=== PATIENT | female | born 1935 | race Caucasian/White ===

== ENCOUNTER → 2016-06-19 | Outpatient (CLI) | payer OTHER ==
[~2016-06-19] MED LIST: ASPIR 8181 M1 PO; ASPIR 8181 MG PO; BENAZEPRIL 10 M10 MG PO; BENAZEPRIL HCL40 MG PO; DUONEB 2.5-0.5 M3 ML INH; FLOMAX0.4 MG PO; GABAPENTIN 100100 MG; IRON325 PO; LASIX 20 MG TAB20 MG; LASIX 20 MG TAB20 MG PO; LEVOTHYROXINE0.05 MG PO; LIPITOR 20 MG T20 M1 PO; MUCINEX TA600 MG/TA1 PO; NEURONTIN600 MG PO; NORTRIPTYLINE H10 M1 PO; NORTRIPTYLINE H10 M2; OMEPRAZOLE20 M2 PO; OSPHENA60 MG PO; PROTONIX40 M4 PO; REQUIP 0.25 M0.25 M1; REQUIP3 MG PO
== END ==
LOC: HYPER 08:00
DX: I87.2 Venous insufficiency (chronic) (peripheral) (principal); L97.512 Non-pressure chronic ulcer of other part of right foot with fat layer exposed; I12.9 Hypertensive chronic kidney disease with stage 1 through stage 4 chronic kidney disease, or unspecified chronic kidney disease; N18.9 Chronic kidney disease, unspecified; E03.9 Hypothyroidism, unspecified; K21.9 Gastro-esophageal reflux disease without esophagitis; Z87.891 Personal history of nicotine dependence

== ENCOUNTER 2016-08-23 10:25 | Inpatient (IN) | payer OTHER ==
[~2016-08-23] VITALS: Ht 152.4 cm; Wt 80.1 kg
--- NOTE | ~2016-08-23 | EKG ---
[address] [address] ELECTROCARDIOGRAM REPORT Name: CHELSY TALLEY Room #: 419-P [facility] IN ..#: [id number] Admission: 08/23/16 Attend Phys: Ham Moreland MD Discharge: Date of : 37 Report #: [id number] THIS REPORT FOR: //name// [facility] ED Test Date: 2016-08-23 Test Time: 10:38:26 Pat Name: CHELSY TALLEY Department: Room: 419 Gender: F Carbonator: LUDIVINA : 1935 Requested By: Roman Mancuso Order Number: [id number] MD: Crow Vega Measurements Intervals [place] Rate: 72 P: 41 [place]: 164 QRS: -44 QRSD: 106 T: 20 QT: 379 QTc: 415 Interpretive Statements Sinus rhythm Left ventricular hypertrophy No previous ECG available for comparison Electronically Signed On 08-24-2016 9:07:14 CDT by Crow Vega [email or web address] <ELECTRONICALLY SIGNED> By: Crow Vega MD, [facility] 08/24/16 0907 1038 1038 Crow Vega MD, FACC /EPI
[~2016-08-23 10:25] MED LIST changes: -ASPIR 8181 M1 PO; -BENAZEPRIL 10 M10 MG PO; -DUONEB 2.5-0.5 M3 ML INH; -FLOMAX0.4 MG PO; -IRON325 PO; -LASIX 20 MG TAB20 MG PO; -LEVOTHYROXINE0.05 MG PO; -LIPITOR 20 MG T20 M1 PO; -MUCINEX TA600 MG/TA1 PO; -NEURONTIN600 MG PO; -NORTRIPTYLINE H10 M1 PO; -OMEPRAZOLE20 M2 PO; -OSPHENA60 MG PO; -PROTONIX40 M4 PO; -REQUIP3 MG PO
[2016-08-23 10:26] VITALS: BP 148/87
[2016-08-23] MEDS ORDERED: OSPHENA60 MG PO (10:47)
[2016-08-23] MEDS ORDERED: BENAZEPRIL 10 M10 MG PO (10:47)
[2016-08-23] MEDS ORDERED: LEVOTHYROXINE0.05 MG PO (10:47)
[2016-08-23] MEDS ORDERED: LASIX 20 MG TAB20 MG PO (10:47)
[2016-08-23] MEDS ORDERED: FLOMAX0.4 MG PO (10:48)
[2016-08-23] MEDS ORDERED: PROTONIX40 M4 PO (10:48)
[2016-08-23 10:49] LABS: ABSOLUTE NEUTROPHILS 3.2 thou/uL (1.4-8.2); BASOPHILS 0.7 % (0.0-2.0); EOSINOPHILS 2.9 % (0.0-3.0); HEMATOCRIT 33.8 % (37.0-47.0); HEMOGLOBIN 11.2 gm/dL (12.0-15.0); LYMPHOCYTES 24.4 % (24.0-44.0); MANUAL DIFF NO; MCH 26.6 pg (26.0-34.0); MCV 80.5 fL (80.0-100.0); MONOCYTES 7.8 % (1.0-8.0); PLATELET COUNT 160 thou/uL (150-400); POLYS 64.2 % (36.0-66.0); RDW 15.3 % (10.5-14.5)
[2016-08-23 10:56] LABS: CALCIUM 8.7 mg/dL (8.5-10.1); CREATININE 1.4 mg/dL (0.6-1.3); POTASSIUM 4.2 mmol/L (3.5-5.1)
[2016-08-23 11:03] LABS: TOTAL BILIRUBIN 0.3 mg/dL (<0.1-1.0); TOTAL PROTEIN 6.9 g/dL (6.4-8.2)
[2016-08-23 11:20] LABS: URINE BILIRUBIN NEGATIVE (Negative); URINE BLOOD 3+ (Negative); URINE COLOR YELLOW; URINE GLUCOSE-RANDOM* NEGATIVE (Negative); URINE KETONES NEGATIVE (Negative); URINE LEUKOCYTES-REFLEX NEGATIVE (Negative); URINE PROTEIN (DIPSTICK) NEGATIVE (Negative); URINE SPECIFIC GRAVITY <= 1.005 (1.003-1.035); URINE UROBILINOGEN 0.2 E.U./dl (0.2-1.0)
[2016-08-23 11:26] LABS: CASTS None Seen /LPF (None Seen); CRYSTALS None Seen /LPF (None Seen); SQUAMOUS 4-10 Moderate /LPF (0-3); URINE RBC 3-10 Few /HPF (0-2)
[2016-08-23 11:27] LABS: URINE WBC-REFLEX 0-5 Rare /HPF (0-5)
[2016-08-23 12:20] VITALS: BP 138/81
[2016-08-23] MEDS ORDERED: REQUIP3 MG PO (12:36)
[2016-08-23] MEDS ORDERED: NEURONTIN600 MG PO (12:36)
[2016-08-23] MEDS ORDERED: NORTRIPTYLINE H10 M1 PO (12:37)
[2016-08-23] MEDS ORDERED: IRON325 PO (12:38)
[2016-08-23] MEDS ORDERED: ASPIR 8181 M1 PO (12:53)
[2016-08-23 15:15] VITALS: BP 108/64
[2016-08-23 20:00] VITALS: BP 99/57
[2016-08-24 04:00] VITALS: BP 116/56
[2016-08-24 06:12] LABS: HEMOGLOBIN 10.5 gm/dL (12.0-15.0); MCH 26.8 pg (26.0-34.0); MCHC 32.8 g/dL (28.0-37.0); MCV 81.8 fL (80.0-100.0); RBC 3.91 mil/uL (4.20-5.00); RDW 15.6 % (10.5-14.5); WBC 5.3 thou/uL (4.0-11.0)
[2016-08-24 06:40] LABS: CALCIUM 8.1 mg/dL (8.5-10.1); CREATININE 1.3 mg/dL (0.6-1.3)
[2016-08-24 07:19] VITALS: BP 104/59
[2016-08-24 08:03] VITALS: BP 106/64
[2016-08-24] MEDS ORDERED: OMEPRAZOLE20 M2 PO (10:59)
[2016-08-24] MEDS ORDERED: LIPITOR 20 MG T20 M1 PO (10:59)
[2016-08-24 13:01] VITALS: BP 110/53
[2016-08-24 15:39] VITALS: BP 113/59
[2016-08-24 20:00] VITALS: BP 120/55
[2016-08-25 04:48] VITALS: BP 141/66
[2016-08-25 07:33] VITALS: BP 128/57
[2016-08-25 16:03] VITALS: BP 123/60
[2016-08-25 20:00] VITALS: BP 132/69
[2016-08-26 04:50] VITALS: BP 159/98
[2016-08-26 07:53] VITALS: BP 145/83
[2016-08-26 12:49] LABS: HEMATOCRIT 30.7 % (37.0-47.0); HEMOGLOBIN 10.4 gm/dL (12.0-15.0); MCH 26.8 pg (26.0-34.0); MCHC 33.8 g/dL (28.0-37.0); MCV 79.2 fL (80.0-100.0); RBC 3.88 mil/uL (4.20-5.00); RDW 15.2 % (10.5-14.5); WBC 3.9 thou/uL (4.0-11.0)
[2016-08-26 13:00] LABS: CALCIUM 8.1 mg/dL (8.5-10.1)
[2016-08-26 15:12] VITALS: BP 151/77
[2016-08-26 20:00] VITALS: BP 133/78
[2016-08-27 04:00] VITALS: BP 137/89
[2016-08-27 07:47] VITALS: BP 147/87
[2016-08-27 09:07] LABS: HEMATOCRIT 34.5 % (37.0-47.0); HEMOGLOBIN 11.7 gm/dL (12.0-15.0); MCH 26.8 pg (26.0-34.0); MCHC 34.1 g/dL (28.0-37.0); MCV 78.7 fL (80.0-100.0); RBC 4.38 mil/uL (4.20-5.00); RDW 15.1 % (10.5-14.5); WBC 4.4 thou/uL (4.0-11.0)
[2016-08-27 09:15] LABS: CALCIUM 8.6 mg/dL (8.5-10.1); CREATININE 1.2 mg/dL (0.6-1.3); POTASSIUM 3.9 mmol/L (3.5-5.1)
[2016-08-27 16:21] VITALS: BP 139/91
[2016-08-27 20:00] VITALS: BP 138/93
[2016-08-28 03:09] LABS: HEMATOCRIT 32.5 % (37.0-47.0); HEMOGLOBIN 11.1 gm/dL (12.0-15.0); MCH 26.8 pg (26.0-34.0); MCHC 34.1 g/dL (28.0-37.0); MCV 78.7 fL (80.0-100.0); RBC 4.13 mil/uL (4.20-5.00); RDW 15.3 % (10.5-14.5); WBC 4.3 thou/uL (4.0-11.0)
[2016-08-28 03:22] LABS: CREATININE 1.3 mg/dL (0.6-1.3); POTASSIUM 3.8 mmol/L (3.5-5.1)
[2016-08-28 03:58] LABS: CALCIUM 8.3 mg/dL (8.5-10.1)
[2016-08-28 04:30] VITALS: BP 132/76
[2016-08-28 07:40] VITALS: BP 137/69
[2016-08-28] MEDS ORDERED: DUONEB 2.5-0.5 M3 ML INH (14:51)
[2016-08-28] MEDS ORDERED: MUCINEX TA600 MG/TA1 PO (14:54)
[2016-08-28 15:40] VITALS: BP 133/84
[2016-08-31 22:06] LABS: INFLUENZA B Negative (Negative); METAPNEUMOVIRUS Negative (Negative)
== END 2016-08-28 17:49 | DRG 603 ==
LOC: ER 10:25 → 4E 11:45 → EROBS 11:45 → 4E 12:20
PROVIDERS: Emergency Medicine; Hospitalist; Internal Medicine
DX: L03.115 Cellulitis of right lower limb (principal); N17.9 Acute kidney failure, unspecified; N39.0 Urinary tract infection, site not specified; J20.8 Acute bronchitis due to other specified organisms; I10 Essential (primary) hypertension; E03.9 Hypothyroidism, unspecified; B34.9 Viral infection, unspecified; G62.9 Polyneuropathy, unspecified; M19.90 Unspecified osteoarthritis, unspecified site; Z96.651 Presence of right artificial knee joint; Z87.891 Personal history of nicotine dependence; Z88.6 Allergy status to analgesic agent
CPT/HCPCS: 10084

== ENCOUNTER 2016-10-31 10:22 | Emergency (ER) | payer OTHER ==
[~2016-10-31] VITALS: Ht 152.4 cm; Wt 81.7 kg
[~2016-10-31 10:22] MED LIST changes: +ASPIR 8181 M1 PO; +BENAZEPRIL 10 M10 MG PO; +DUONEB 2.5-0.5 M3 ML INH; +FLOMAX0.4 MG PO; +IRON325 PO; +LASIX 20 MG TAB20 MG PO; +LEVOTHYROXINE0.05 MG PO; +LIPITOR 20 MG T20 M1 PO; +MUCINEX TA600 MG/TA1 PO; +NEURONTIN600 MG PO; +NORTRIPTYLINE H10 M1 PO; +OMEPRAZOLE20 M2 PO; +OSPHENA60 MG PO; +PROTONIX40 M4 PO; +REQUIP3 MG PO
[2016-10-31 11:23] LABS: ABSOLUTE NEUTROPHILS 3.9 thou/uL (1.4-8.2); BASOPHILS 0.8 % (0.0-2.0); EOSINOPHILS 2.8 % (0.0-3.0); HEMATOCRIT 33.4 % (37.0-47.0); HEMOGLOBIN 11.2 gm/dL (12.0-15.0); MANUAL DIFF NO; MCHC 33.4 g/dL (28.0-37.0); MCV 80.6 fL (80.0-100.0); MONOCYTES 5.5 % (1.0-8.0); PLATELET COUNT 174 thou/uL (150-400); POLYS 66.9 % (36.0-66.0); RBC 4.14 mil/uL (4.20-5.00); RDW 15.1 % (10.5-14.5); WBC 5.8 thou/uL (4.0-11.0)
[2016-10-31 11:45] LABS: CALCIUM 8.6 mg/dL (8.5-10.1); CREATININE 1.4 mg/dL (0.6-1.0)
[2016-10-31] MEDS ORDERED: KEFLEX500 MG PO (11:48)
== END 2016-10-31 11:56 | disposition home or self-care (01) ==
LOC: ER 10:22
PROVIDERS: Emergency Medicine
DX: L03.115 Cellulitis of right lower limb (principal); M19.90 Unspecified osteoarthritis, unspecified site; G62.9 Polyneuropathy, unspecified; I10 Essential (primary) hypertension; G56.00 Carpal tunnel syndrome, unspecified upper limb; Z88.5 Allergy status to narcotic agent; Z87.891 Personal history of nicotine dependence

== ENCOUNTER 2017-02-05 12:48 | Emergency (ER) | payer OTHER ==
[~2017-02-05] VITALS: Ht 152.4 cm; Wt 83.5 kg
[~2017-02-05 12:48] MED LIST changes: +KEFLEX500 MG PO
[2017-02-05 15:08] LABS: ABSOLUTE NEUTROPHILS 3.5 thou/uL (1.4-8.2); BASOPHILS 1.1 % (0.0-2.0); EOSINOPHILS 2.5 % (0.0-3.0); HEMOGLOBIN 12.2 gm/dL (12.0-15.0); LYMPHOCYTES 21.7 % (24.0-44.0); MCH 26.8 pg (26.0-34.0); MCV 81.2 fL (80.0-100.0); MONOCYTES 7.6 % (1.0-8.0); PLATELET COUNT 168 thou/uL (150-400); POLYS 67.1 % (36.0-66.0); RBC 4.55 mil/uL (4.20-5.00); RDW 14.9 % (10.5-14.5); WBC 5.2 thou/uL (4.0-11.0)
[2017-02-05 15:10] LABS: MANUAL DIFF NO
[2017-02-05 15:14] LABS: CALCIUM 8.9 mg/dL (8.5-10.1); CREATININE 1.2 mg/dL (0.6-1.0); POTASSIUM 4.3 mmol/L (3.5-5.1)
[2017-02-05 15:21] LABS: ALBUMIN 3.6 g/dL (3.4-5.0); TOTAL BILIRUBIN 0.4 mg/dL (<0.1-1.0); TOTAL PROTEIN 7.4 g/dL (6.4-8.2)
[2017-02-05] MEDS ORDERED: KEFLEX500 MG PO (15:45)
== END 2017-02-05 16:30 | disposition home or self-care (01) ==
LOC: ER 12:48
PROVIDERS: Physician Assistant
DX: L03.115 Cellulitis of right lower limb (principal); I10 Essential (primary) hypertension; Z96.651 Presence of right artificial knee joint; M19.90 Unspecified osteoarthritis, unspecified site; F10.99 Alcohol use, unspecified with unspecified alcohol-induced disorder; Z87.891 Personal history of nicotine dependence; Z88.5 Allergy status to narcotic agent

== ENCOUNTER 2017-02-25 09:06 | Inpatient (IN) | payer OTHER ==
[~2017-02-25] VITALS: Ht 152.4 cm; Wt 87.5 kg
--- NOTE | ~2017-02-25 | HC ---
[facility] [place] [address] CONSULTATION Name: CHELSY TALLEY Room #: 308-P ADM IN M.R.#: [id number] Admission: 02/25/17 Attend Phys: Vin Sanchez DO Discharge: Date of : 37 Report #: [id number] THIS REPORT FOR: //name// CC: Vin Torrez DATE OF SERVICE: 02/25/2017 INFECTIOUS DISEASE CONSULTATION REASON FOR CONSULTATION: I was asked to evaluate concerning right lower extremity cellulitis and urinary tract infection. HISTORY OF PRESENT ILLNESS: The patient is a 81-year-old who lives in an assisted living with her . Has issues with chronic lymphedema in both lower extremities. She has recurrent urinary tract infections. She noted that last evening, her cat jumped on her bed and scratch her leg. From there, she had increased pain and swelling, mostly in the right leg greater than the left. She has previously been on cephalexin. Presents now for further evaluation. She has been without fever or chills. Denies any cough or sputum production. No nausea, vomiting or diarrhea. She has not had any dysuria, but does have incontinence and frequency. ALLERGIES: None known. MEDICATIONS: As noted on AUG, was started on vancomycin on admission. PAST MEDICAL HISTORY: Peripheral neuropathy, peripheral edema, hypertension, arthritis, surgery to her neck, cervical spine, right knee total arthroplasty, , carpal tunnel release, spinal fusion, lumbar spine, hypothyroidism. FAMILY HISTORY: Noncontributory. SOCIAL HISTORY: Past smoker, no significant alcohol intake. PHYSICAL EXAMINATION: VITAL SIGNS: Afebrile and hemodynamically stable. GENERAL: She was alert and cooperative. O2 saturations adequate on room air. HEENT: Unremarkable. NECK: Supple. LUNGS: Clear. HEART: Regular, without gallop or murmur. ABDOMEN: Soft, nontender. No hepatosplenomegaly or mass. EXTREMITIES: Pulses in the lower extremity, unremarkable with 2+ pulses in the right dorsalis pedis, 3+ left dorsalis pedis, 3+ posterior tibial; venous stasis dermatitis, right greater than left with associated cellulitis involving the [address] [address] CONSULTATION Name: MAYANKCHELSYMILLICENT CHRISTIE Room #: 308-P [facility] IN [facility].#: [id number] Admission: 02/25/17 Attend Phys: Vin Sacnhez DO Discharge: Date of : 37 Report #: [id number] right lower extremity up to the calf. There was skin breakdown and serous fluid draining. Sensation was diminished in her toes. LABORATORY STUDIES: Ultrasound of lower extremity is negative for DVT. Chest x-ray clear. Sodium 137, potassium 4.4, bicarbonate 26, creatinine 1.6. Liver function test normal. Hemoglobin 11.4, platelet count 154,000, white count 8.7. Urinalysis positive for WBCs, bacteria, and yeast. IMPRESSION: A 81-year-old with venous stasis disease, bilateral stasis dermatitis with cellulitis involving the right lower extremity. This was after a cat scratch. This will increase possibility of gram-negative infection. She also has a urinary tract infection consistent with cystitis. She had no CVA tenderness or other toxicity to suspect upper tract. PLAN: Recommend continuing IV antibiotic therapy with Unasyn. The patient will be screened for MRSA. Leg elevation to decreased edema. Diuresis as necessary. Await urine culture results. We will adjust antibiotics accordingly. <ELECTRONICALLY SIGNED> By: Emile Agustin MD 02/27/17 1424 05 0359 Emile Agustin MD /nt
[2017-02-25 09:06] VITALS: BP 130/72
[2017-02-25] MEDS ORDERED: COCONUT OIL1000 MG PO (09:30)
[2017-02-25] MEDS ORDERED: NEURONTIN600 MG PO (09:30)
[2017-02-25] MEDS ORDERED: UNICOMPLEX M TA1 TA1 PO (09:30)
[2017-02-25] MEDS ORDERED: ANTIVERT25 MG PO (09:32)
[2017-02-25 09:39] LABS: ABSOLUTE NEUTROPHILS 7.2 thou/uL (1.4-8.2); BASOPHILS 0.3 % (0.0-2.0); EOSINOPHILS 0.4 % (0.0-3.0); HEMATOCRIT 34.8 % (37.0-47.0); HEMOGLOBIN 11.4 gm/dL (12.0-15.0); LYMPHOCYTES 11.5 % (24.0-44.0); MCH 26.6 pg (26.0-34.0); MCHC 32.6 g/dL (28.0-37.0); MCV 81.6 fL (80.0-100.0); MONOCYTES 5.2 % (1.0-8.0); PLATELET COUNT 154 thou/uL (150-400); POLYS 82.6 % (36.0-66.0); RBC 4.27 mil/uL (4.20-5.00); RDW 14.7 % (10.5-14.5); WBC 8.7 thou/uL (4.0-11.0)
[2017-02-25 09:42] LABS: CALCIUM 8.5 mg/dL (8.5-10.1); CREATININE 1.6 mg/dL (0.6-1.0); POTASSIUM 4.4 mmol/L (3.5-5.1)
[2017-02-25 09:43] LABS: MANUAL DIFF NO
[2017-02-25 09:49] LABS: ALBUMIN 3.4 g/dL (3.4-5.0); DIRECT BILIRUBIN 0.1 mg/dL (<0.1-0.3); TOTAL BILIRUBIN 0.5 mg/dL (<0.1-1.0); TOTAL PROTEIN 6.4 g/dL (6.4-8.2)
[2017-02-25 10:10] LABS: URINE BILIRUBIN NEGATIVE (Negative); URINE BLOOD NEGATIVE (Negative); URINE COLOR YELLOW; URINE GLUCOSE-RANDOM* NEGATIVE (Negative); URINE KETONES NEGATIVE (Negative); URINE NITRITE NEGATIVE (Negative); URINE PROTEIN (DIPSTICK) NEGATIVE (Negative); URINE UROBILINOGEN 0.2 E.U./dl (0.2-1.0)
[2017-02-25 10:23] LABS: SQUAMOUS >10 Many /LPF (0-3)
[2017-02-25 10:24] LABS: CASTS None Seen /LPF (None Seen); CRYSTALS None Seen /LPF (None Seen); URINE RBC 0-2 Rare /HPF (0-2); URINE WBC >25 Many /HPF (0-5); YEAST Present (None Seen)
[2017-02-25 11:35] VITALS: BP 125/75
[2017-02-25 12:30] VITALS: BP 137/71
[2017-02-25 15:15] VITALS: BP 103/61
[2017-02-25 19:10] VITALS: BP 118/74
[2017-02-25 23:11] VITALS: BP 124/55
[2017-02-26 03:08] VITALS: BP 145/68
[2017-02-26 03:42] LABS: CALCIUM 8.1 mg/dL (8.5-10.1); CREATININE 1.4 mg/dL (0.6-1.0); POTASSIUM 4.4 mmol/L (3.5-5.1)
[2017-02-26 03:59] LABS: BASOPHILS 0.9 % (0.0-2.0); EOSINOPHILS 4.5 % (0.0-3.0); HEMATOCRIT 30.6 % (37.0-47.0); HEMOGLOBIN 10.1 gm/dL (12.0-15.0); LYMPHOCYTES 32.8 % (24.0-44.0); MCHC 33.1 g/dL (28.0-37.0); MCV 81.6 fL (80.0-100.0); MONOCYTES 7.7 % (1.0-8.0); PLATELET COUNT 148 thou/uL (150-400); POLYS 54.1 % (36.0-66.0); RBC 3.75 mil/uL (4.20-5.00); RDW 15.3 % (10.5-14.5); WBC 5.5 thou/uL (4.0-11.0)
[2017-02-26 04:30] LABS: MANUAL DIFF NO
[2017-02-26 08:24] VITALS: BP 122/59
[2017-02-26 16:24] VITALS: BP 145/60
[2017-02-26 19:38] VITALS: BP 118/68
[2017-02-27 03:58] VITALS: BP 145/75
[2017-02-27 07:15] VITALS: BP 142/82
[2017-02-27 07:19] LABS: ABSOLUTE NEUTROPHILS 2.5 thou/uL (1.4-8.2); BASOPHILS 0.8 % (0.0-2.0); EOSINOPHILS 5.8 % (0.0-3.0); HEMATOCRIT 32.4 % (37.0-47.0); HEMOGLOBIN 11.1 gm/dL (12.0-15.0); LYMPHOCYTES 33.1 % (24.0-44.0); MCH 27.6 pg (26.0-34.0); MCHC 34.2 g/dL (28.0-37.0); MCV 80.4 fL (80.0-100.0); MONOCYTES 7.7 % (1.0-8.0); PLATELET COUNT 157 thou/uL (150-400); POLYS 52.6 % (36.0-66.0); RBC 4.03 mil/uL (4.20-5.00); RDW 15.2 % (10.5-14.5); WBC 4.8 thou/uL (4.0-11.0)
[2017-02-27 07:20] LABS: MANUAL DIFF NO
[2017-02-27 07:26] LABS: CALCIUM 8.5 mg/dL (8.5-10.1); CREATININE 1.4 mg/dL (0.6-1.0); POTASSIUM 4.2 mmol/L (3.5-5.1)
[2017-02-27 18:11] VITALS: BP 130/61
[2017-02-28 03:59] VITALS: BP 148/78
[2017-02-28 05:59] LABS: ABSOLUTE NEUTROPHILS 3.6 thou/uL (1.4-8.2); BASOPHILS 0.8 % (0.0-2.0); EOSINOPHILS 4.9 % (0.0-3.0); HEMATOCRIT 36.4 % (37.0-47.0); LYMPHOCYTES 32.3 % (24.0-44.0); MCH 26.4 pg (26.0-34.0); MCV 80.1 fL (80.0-100.0); MONOCYTES 7.3 % (1.0-8.0); PLATELET COUNT 182 thou/uL (150-400); POLYS 54.7 % (36.0-66.0); RBC 4.55 mil/uL (4.20-5.00); RDW 14.7 % (10.5-14.5); WBC 6.5 thou/uL (4.0-11.0)
[2017-02-28 06:09] LABS: CREATININE 1.2 mg/dL (0.6-1.0); POTASSIUM 4.3 mmol/L (3.5-5.1)
[2017-02-28 06:11] LABS: MANUAL DIFF NO
[2017-02-28 08:00] VITALS: BP 146/80
[2017-02-28 16:20] VITALS: BP 153/86
[2017-02-28 19:51] VITALS: BP 129/78
[2017-03-01 03:50] VITALS: BP 139/82
[2017-03-01 05:26] LABS: ABSOLUTE NEUTROPHILS 2.7 thou/uL (1.4-8.2); BASOPHILS 0.8 % (0.0-2.0); EOSINOPHILS 5.6 % (0.0-3.0); HEMATOCRIT 34.6 % (37.0-47.0); HEMOGLOBIN 11.7 gm/dL (12.0-15.0); LYMPHOCYTES 36.5 % (24.0-44.0); MCHC 33.9 g/dL (28.0-37.0); MCV 79.6 fL (80.0-100.0); MONOCYTES 6.3 % (1.0-8.0); PLATELET COUNT 186 thou/uL (150-400); POLYS 50.8 % (36.0-66.0); RBC 4.35 mil/uL (4.20-5.00); WBC 5.4 thou/uL (4.0-11.0)
[2017-03-01 05:33] LABS: MANUAL DIFF NO
[2017-03-01 05:47] LABS: CALCIUM 8.8 mg/dL (8.5-10.1); CREATININE 1.2 mg/dL (0.6-1.0); POTASSIUM 3.8 mmol/L (3.5-5.1)
[2017-03-01 07:50] VITALS: BP 109/71
[2017-03-01] MEDS ORDERED: Hydrocerin Cream 4 O TOP (11:13)
[2017-03-01 13:56] VITALS: BP 109/71
[2017-03-01 14:10] VITALS: BP 109/71
[2017-03-01] MEDS ORDERED: AUGMENTIN 875-1 EACH PO (14:32)
== END 2017-03-01 16:03 | disposition home health service (06) | DRG 603 ==
LOC: ER 09:06 → EROBS 10:54 → 3N 10:54 → 4N 02-27 17:50 → ENTRNSPT 03-01 15:54 → EDTRNSPTSTS 03-01 15:57 → 4N 03-01 16:03
PROVIDERS: Family Medicine; Nurse Practitioner
DX: L03.115 Cellulitis of right lower limb (principal); N39.0 Urinary tract infection, site not specified; I87.8 Other specified disorders of veins; I10 Essential (primary) hypertension; L30.9 Dermatitis, unspecified; E03.9 Hypothyroidism, unspecified; G62.9 Polyneuropathy, unspecified; M19.90 Unspecified osteoarthritis, unspecified site; Z79.82 Long term (current) use of aspirin; Z79.899 Other long term (current) drug therapy; Z88.5 Allergy status to narcotic agent
CPT/HCPCS: 10096; 10790

== ENCOUNTER → 2017-03-08 | Outpatient (CLI) | payer OTHER ==
[~2017-03-08] MED LIST changes: +ANTIVERT25 MG PO; +AUGMENTIN 875-1 EACH PO; +COCONUT OIL1000 MG PO; +Hydrocerin Cream 4 O TOP; +UNICOMPLEX M TA1 TA1 PO
== END ==
LOC: HYPER 06:57
DX: L03.115 Cellulitis of right lower limb (principal); E03.9 Hypothyroidism, unspecified; I87.2 Venous insufficiency (chronic) (peripheral); K21.9 Gastro-esophageal reflux disease without esophagitis; G62.9 Polyneuropathy, unspecified; I12.9 Hypertensive chronic kidney disease with stage 1 through stage 4 chronic kidney disease, or unspecified chronic kidney disease; N18.9 Chronic kidney disease, unspecified; Z87.891 Personal history of nicotine dependence

== ENCOUNTER 2017-03-21 11:11 | Inpatient (IN) | payer OTHER ==
[~2017-03-21] VITALS: Ht 152.4 cm; Wt 78.9 kg
--- NOTE | ~2017-03-21 | HC ---
[facility] [place] [address] CONSULTATION Name: CHELSY TALLEY Room #: 408-P ADM IN M.R.#: [id number] Admission: 03/21/17 Attend Phys: Luigi Mckeon MD Discharge: Date of : 37 Report #: [id number] THIS REPORT FOR: //name// CC: Luigi Torrez REASON FOR CONSULTATION: I was asked to evaluate concerning right lower extremity venous stasis disease and cellulitis. HISTORY OF PRESENT ILLNESS: The patient is an 82-year-old with previous history of venous stasis disease. I saw her last during her admission on 02/25/2017 with similar problem. She was treated with IV antibiotic therapy not only for the lymphedema, cellulitis, but also for urinary tract infection. She discharged on cephalexin. She completed this course of therapy. Still had swelling in the right lower extremity despite using compression stockings. Presents now with increased pain, swelling and erythema. No fever, chills or sweats. Denies any GI, or cardiopulmonary complaints. Treated with vancomycin and Zosyn. MEDICATIONS: Otherwise unchanged from her MAR. ALLERGIES: OXYCODONE. PAST MEDICAL HISTORY, FAMILY HISTORY AND SOCIAL HISTORY: Unchanged from her history and physical and that previous consultation for the last month. REVIEW OF SYSTEMS: As noted above. PHYSICAL EXAMINATION: VITAL SIGNS: She is afebrile, hemodynamically stable. GENERAL: Alert, cooperative and pleasant, in no acute distress. HEENT: Unremarkable. CHEST: Clear. HEART: Regular. ABDOMEN: Soft. She had 2+ edema. EXTREMITIES: Right lower extremity with venous stasis dermatitis changes along with cellulitis up to her proximal calf. Minimal tenderness in the right medial thigh. LABORATORY STUDIES: Blood cultures are negative. Venous ultrasound negative for DVT. Urinalysis unremarkable. Hemoglobin 10.6, white count 5, platelet count 164,000. Sodium 141, potassium 3.9, bicarbonate 27, creatinine 1.4. Liver function test normal. IMPRESSION: An 82-year-old with venous stasis disease involving the right lower extremity with chronic lymphedema, now with acute cellulitis. [address] [address] CONSULTATION Name: CHELSY TALLEY Room #: 408-P ADM IN [facility].#: [id number] Admission: 03/21/17 Attend Phys: Luigi Mckeon MD Discharge: Date of : 37 Report #: [id number] RECOMMENDATIONS: Would recommend continuing cefazolin. Again transition to cephalexin when stable. May need to go on a prolonged course of oral antibiotic therapy as she continues to work on lymphedema. <ELECTRONICALLY SIGNED> By: Emile Agustin MD 03/23/17 1941 192 0224 Emile Agustin MD /nt
--- NOTE | ~2017-03-21 | H ---
[facility] [place] [address] HISTORY AND PHYSICAL Name: CHELSY TALLEY Room #: 170-2 ADM IN M.R.#: [id number] Admission: 03/21/17 Attend Phys: Luigi Mckeon MD Discharge: Date of : 37 Report #: [id number] THIS REPORT FOR: //name// CC: Luigi Torrez DATE OF SERVICE: 03/21/2017 REASON FOR PRESENTATION: Right lower extremity swelling and redness, increased warmth. HISTORY OF PRESENT ILLNESS: The patient is well known to us from previous hospitalizations. She was hospitalized a couple of times in this facility back in August and February of this year. She is known to have hypertension, hypothyroidism. She presented with right lower extremity swelling, pain, redness, erythema that had been worsening over the last few days. Of note, is the fact that the patient was recently admitted for cellulitis and had been following up with the infectious disease. She just finished the course of Keflex. It does look like that she suffers from chronic venous stasis changes, complicating her cellulitis. She denies any fever or chills. No urinary symptoms. No recent trauma. She realized that in the last day or so, she started to have some drainage from the right-sided tibial castillo. Previous admission, she was treated with appropriate antibiotic and was found to have yeast dermatitis complicating her cellulitis. PAST MEDICAL HISTORY: 1. Hypertension. 2. Hypothyroidism. 3. Repeated episodes of cellulitis. 4. Peripheral neuropathy. 5. Venous stasis changes. PAST SURGICAL HISTORY: 1. Cervical rods. 2. . 3. Lumbar rods. 4. Appendectomy. MEDICATIONS: 1. Benazepril. 2. Lasix. 3. Levothyroxine. 4. Pantoprazole. 5. Gabapentin. 6. Meclizine. [facility] [address] [place] [address] HISTORY AND PHYSICAL Name: CHELSY TALLEY Room #: 170-2 ADM IN [facility]#: [id number] Admission: 03/21/17 Attend Phys: Luigi Mckeon MD Discharge: Date of : 37 Report #: [id number] ALLERGIES: OXYCODONE. FAMILY HISTORY: Her father was diabetic. SOCIAL HISTORY: No drug or alcohol abuse. She lives in the [facility]. She is pretty much independent, using a walker. 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 REVIEW OF SYSTEMS: GENERAL: No fever or chills. CARDIOVASCULAR: No chest pain or palpitation. PULMONARY: Baseline shortness of breath. GASTROINTESTINAL: No nausea or vomiting. GENITOURINARY: No frequency, no urgency. MUSCULOSKELETAL: As per the history of present illness. NEUROLOGIC: No weakness. No headache. PHYSICAL EXAMINATION: GENERAL: She is alert, oriented, in no apparent distress. VITAL SIGNS: Pulse ox is 98, blood pressure 130/60, temperature 36.8, pulse rate 76, respiratory rate 17. HEAD AND NECK: No jugular venous distention, no bruit, no thyromegaly. CHEST: Clear to auscultation bilaterally. CARDIOVASCULAR: Regular with no rub detected. ABDOMEN: Soft, nontender with no hepatosplenomegaly. EXTREMITIES: Lower extremities, +3 edema bilaterally. On the right lower extremity, there is a right knee replacement old scar. The right leg is completely swollen and erythematous with some sanguineous discharge from the inferior tibial castillo. There are no ulcerations. NEUROLOGIC: Alert and oriented. Symmetrical power and sensations. No focal deficits. SKIN: As described above. LABORATORY VALUES: Reviewed. Creatinine is 1.4, lactic is 0.8, albumin is 3.2. White blood cell count is 5.1, hemoglobin is 10.9. Cultures are still pending. ASSESSMENT, IMPRESSION, PLAN: 1. Right lower extremity extensive cellulitis with venous stasis changes. 2. Chronic venous stasis edema. 3. Hypertension. 4. Hypothyroidism. 5. Admission. 6. Swab the right lower extremity. 7. Cultures of the blood and the area. 8. Resume blood pressure medications. 9. [place] [address] HISTORY AND PHYSICAL Name: CHELSY TALLEY Room #: 170-2 ADM IN M.R.#: [id number] Admission: 03/21/17 Attend Phys: Luigi Mckeon MD Discharge: Date of : 37 Report #: [id number] 10. Start on appropriate antibiotic. 11. Obtain another ultrasound of the lower extremities to rule out deep venous thrombosis. 12. ID consultation. 13. Routine local care of the wound with wound care. 14. Previous cultures were reviewed. Blood cultures were negative and local wound cultures were obtained today and we will follow and adjust antibiotics accordingly. By: 1308 1400 Luigi Mckeon MD /nt
[2017-03-21 11:12] VITALS: BP 130/55
[2017-03-21 12:05] LABS: ABSOLUTE NEUTROPHILS 3.2 thou/uL (1.4-8.2); BASOPHILS 0.7 % (0.0-2.0); EOSINOPHILS 3.7 % (0.0-3.0); HEMATOCRIT 33.4 % (37.0-47.0); HEMOGLOBIN 10.9 gm/dL (12.0-15.0); LYMPHOCYTES 28.1 % (24.0-44.0); MCH 26.7 pg (26.0-34.0); MCHC 32.8 g/dL (28.0-37.0); MCV 81.4 fL (80.0-100.0); MONOCYTES 6.3 % (1.0-8.0); PLATELET COUNT 173 thou/uL (150-400); POLYS 61.2 % (36.0-66.0); RDW 15.5 % (10.5-14.5); WBC 5.1 thou/uL (4.0-11.0)
[2017-03-21 12:07] LABS: CALCIUM 8.8 mg/dL (8.5-10.1); CREATININE 1.4 mg/dL (0.6-1.0); POTASSIUM 3.8 mmol/L (3.5-5.1)
[2017-03-21 12:11] LABS: MANUAL DIFF NO
[2017-03-21 12:13] LABS: ALBUMIN 3.2 g/dL (3.4-5.0); DIRECT BILIRUBIN 0.1 mg/dL (<0.1-0.3); TOTAL BILIRUBIN 0.3 mg/dL (<0.1-1.0); TOTAL PROTEIN 6.5 g/dL (6.4-8.2)
[2017-03-21 13:11] LABS: URINE BILIRUBIN NEGATIVE (Negative); URINE BLOOD NEGATIVE (Negative); URINE COLOR YELLOW; URINE GLUCOSE-RANDOM* NEGATIVE (Negative); URINE KETONES NEGATIVE (Negative); URINE PROTEIN (DIPSTICK) NEGATIVE (Negative); URINE UROBILINOGEN 0.2 E.U./dl (0.2-1.0)
[2017-03-21 13:14] LABS: URINE LEUKOCYTES-REFLEX TRACE (Negative)
[2017-03-21 14:22] VITALS: BP 130/55
[2017-03-21 14:54] VITALS: BP 122/80
[2017-03-21 15:20] VITALS: BP 131/83
[2017-03-21 19:17] VITALS: BP 106/62
[2017-03-22 04:30] VITALS: BP 114/67
[2017-03-22 07:00] LABS: HEMOGLOBIN 10.6 gm/dL (12.0-15.0); MCH 27.4 pg (26.0-34.0); MCHC 34.1 g/dL (28.0-37.0); MCV 80.3 fL (80.0-100.0); RBC 3.86 mil/uL (4.20-5.00); RDW 15.4 % (10.5-14.5)
[2017-03-22 07:14] LABS: ALBUMIN 2.7 g/dL (3.4-5.0); CALCIUM 8.1 mg/dL (8.5-10.1); CREATININE 1.4 mg/dL (0.6-1.0); POTASSIUM 3.9 mmol/L (3.5-5.1); TOTAL BILIRUBIN 0.4 mg/dL (<0.1-1.0); TOTAL PROTEIN 5.7 g/dL (6.4-8.2)
[2017-03-22 08:00] VITALS: BP 105/87
[2017-03-22 20:15] VITALS: BP 148/73
[2017-03-22 20:36] VITALS: BP 132/84
[2017-03-23 05:32] VITALS: BP 152/77
[2017-03-23 06:24] LABS: ABSOLUTE NEUTROPHILS 2.1 thou/uL (1.4-8.2); BASOPHILS 0.9 % (0.0-2.0); EOSINOPHILS 6.9 % (0.0-3.0); HEMATOCRIT 34.9 % (37.0-47.0); HEMOGLOBIN 11.4 gm/dL (12.0-15.0); LYMPHOCYTES 38.3 % (24.0-44.0); MCH 26.3 pg (26.0-34.0); MCHC 32.7 g/dL (28.0-37.0); MCV 80.5 fL (80.0-100.0); MONOCYTES 7.9 % (1.0-8.0); PLATELET COUNT 180 thou/uL (150-400); RBC 4.33 mil/uL (4.20-5.00); RDW 15.4 % (10.5-14.5); WBC 4.6 thou/uL (4.0-11.0)
[2017-03-23 06:26] LABS: MANUAL DIFF NO
[2017-03-23 06:35] LABS: CALCIUM 8.8 mg/dL (8.5-10.1); CREATININE 1.4 mg/dL (0.6-1.0); POTASSIUM 3.9 mmol/L (3.5-5.1)
[2017-03-23 07:54] VITALS: BP 145/93
[2017-03-23 19:01] VITALS: BP 142/69
[2017-03-24 04:00] VITALS: BP 159/92
[2017-03-24 08:10] VITALS: BP 135/92
[2017-03-24 10:40] VITALS: BP 135/92
[2017-03-24] MEDS ORDERED: CEPHALEXIN 500500 M3 PO (14:42)
== END 2017-03-24 16:52 | disposition home health service (06) | DRG 602 ==
LOC: ER 11:11 → 4N 12:57 → EROBS 12:57 → 4N 15:06 → ENTRNSPT 03-24 16:40 → 4N 03-24 16:52
PROVIDERS: Emergency Medicine; Family Medicine; Hospitalist
DX: L03.115 Cellulitis of right lower limb (principal); E43 Unspecified severe protein-calorie malnutrition; M19.90 Unspecified osteoarthritis, unspecified site; Z96.651 Presence of right artificial knee joint; E03.9 Hypothyroidism, unspecified; G25.81 Restless legs syndrome; I12.9 Hypertensive chronic kidney disease with stage 1 through stage 4 chronic kidney disease, or unspecified chronic kidney disease; I89.0 Lymphedema, not elsewhere classified; I87.8 Other specified disorders of veins; G62.9 Polyneuropathy, unspecified; N18.9 Chronic kidney disease, unspecified; D64.9 Anemia, unspecified; E88.09 Other disorders of plasma-protein metabolism, not elsewhere classified; Z79.899 Other long term (current) drug therapy; Z88.6 Allergy status to analgesic agent; Z87.891 Personal history of nicotine dependence; Z90.49 Acquired absence of other specified parts of digestive tract; Z83.3 Family history of diabetes mellitus; Z68.34 Body mass index [BMI] 34.0-34.9, adult
CPT/HCPCS: 10790

== ENCOUNTER 2018-05-13 08:51 | Inpatient (IN) | payer OTHER ==
[~2018-05-13] VITALS: Ht 162.6 cm; Wt 83.9 kg
--- NOTE | ~2018-05-13 | HC ---
[facility] [place] [address] CONSULTATION Name: CHELSY TALLEY Room #: 463-P [facility] IN M.R.#: [id number] Admission: 05/13/18 Attend Phys: Nicki Brown Discharge: Date of : 37 Report #: [id number] THIS REPORT FOR: //name// CC: Nicki Torrez DATE OF SERVICE: 05/16/2018 HISTORY OF PRESENT ILLNESS: The patient is an 83-year-old white female with history of hypertension, admitted with slurred speech noted to have left-sided weakness. CT head was negative. She was diagnosed with an acute right basal ganglia infarct. No evidence of atrial fibrillation. No significant carotid stenosis. Cardiology is planning on placing a 2-week event monitor at discharge. She has been diagnosed with a UTI and is on Rocephin. The patient has significant dysphagia, mechanical soft honey thickened liquids. We are seeing her in rehabilitation medicine consultation. PAST MEDICAL HISTORY: Neuropathy, arthritis, hypertension. She had a cervical spine fracture with allegra and neck 2014, history of a right total knee replacement. She has lower back spinal fusion. She does have restless legs syndrome and is on Requip, hypothyroidism, carpal tunnel syndrome. ALLERGIES: OXYCODONE. MEDICATIONS: Please see the full medication listing. This includes vitamins, herbals, and supplements. HABITS: Past tobacco use, quit greater than a year ago. No history of alcohol abuse. SOCIAL HISTORY: Lives in an assisted living facility with her . She had a CVA back in 2001, and has had a prior amputation as well. There is a son Judd and there is a son and [id number]-zob in [place]. The patient premorbidly was ambulatory with a front-wheeled walker. Her is wheelchair bound. REVIEW OF SYSTEMS: Did not offer any current complaints of chest pain, shortness of breath or abdominal discomfort. She was noted to have significant emotional lability, post CVA per staff notes. She does have concerns regarding her swallow. No dizziness, visual changes. No focal extremity pain, complaints other than the restless legs syndrome that have been ongoing. No history of seizures, tremors, no changes in scan and denies any chest pain. Did have a recent evaluation, however for elevated blood pressure/heart rate. Head CT scan PE protocol, which was negative as well as lower extremity Dopplers, which were negative. PHYSICAL EXAMINATION: [facility] [address] [place] [address] CONSULTATION Name: CHELSY TALLEY Room #: 463-P [facility] IN .R.#: [id number] Admission: 05/13/18 Attend Phys: Nicki Brown Discharge: Date of : 37 Report #: [id number] GENERAL: Pleasant 83-year-old white female in no obvious distress. VITAL SIGNS: Last recorded temperature 97.6, pulse 82, respirations 16, blood pressure 137/82. She is alert, pleasant. HEENT: Appeared to be benign. NEUROLOGIC: Cranial nerves are grossly intact. Facies are symmetric. She does not hold her head fully and she does have some forward flexed posture from her prior cervical spine surgery. She is pleasant. She is noted to be right handed. Functional range of motion of both upper extremities. Strength of the right upper extremity is grade 4 to 4-/5, left upper extremity is more of a grade 4-/5 to 3+/5. DTRs are trace to 1. In her lower extremities she does have bilateral venous stasis changes. There is no focal calf swelling, functional range of motion with strength grade 3+/5. No focal sensory decrease to simultaneous stimulation both upper and lower extremities. Upper extremity range of motion appeared intact. DTRs were 1 to trace lower extremities. DTRs were 1. No clonus at the ankles. Functionally, she has been mod assist x 2 sit to stand. She is on a mechanical soft diet honey thickened liquids. ASSESSMENT: An 83-year-old white female with the following problem list: 1. Acute right basal ganglia infarct. 2. Left-sided hemiparesis. 3. Emotional lability. 4. Hypertension. 5. Bradycardia noted to be asymptomatic. 6. Urinary tract infection. 7. Degenerative arthritis. 8. Prior surgeries including spinal fusions and right total knee replacement. PLAN: Would anticipate the patient should be a good candidate for an acute in-hospital inpatient rehabilitation stay. She is on honey thickened liquids for diet and would hope that she can have that advanced soon. At this point, we will plan on transfer to the acute inpatient rehab [facility] when medically cleared. Thank you for asking us to assist in this patient's care. By: 1035 1250 Ashwin Gomez MD /RADHA
--- NOTE | ~2018-05-13 | EKG ---
[address] [address] ELECTROCARDIOGRAM REPORT Name: CHELSY TALLEY Room #: 463- ADM IN M.R.#: [id number] Admission: 05/13/18 Attend Phys: Nicki Brown Discharge: Date of : 37 Report #: [id number] THIS REPORT FOR: //name// [facility] Test Date: 2018-05-14 Test Time: 06:55:16 Pat Name: CHELSY TALLEY Department: Room: 463 Gender: F Nutrition Therapist: EVELYN : 1935 Requested By: Dale Hodges Order Number: [id number] MD: Demetris Lan Measurements Intervals [place] Rate: 44 P: 46 [place]: 164 QRS: -38 QRSD: 110 T: -5 QT: 456 QTc: 390 Interpretive Statements Sinus bradycardia Incomplete RBBB and LAFB Compared to ECG 05/13/2018 09:32:08 Incomplete right bundle-branch block now present Right bundle-branch block now present Sinus rhythm no longer present Electronically Signed On 05-15-2018 20:31:54 PIGMENT MAKING SUPERVISOR by Demetris Lan [email or web address] <ELECTRONICALLY SIGNED> By: Demetris Lan MD 05/15/18 2031 0655 0655 Demetris Lan MD /EPI
--- NOTE | ~2018-05-13 | HC ---
[facility] [place] [address] CONSULTATION Name: CHELSY TALLEY Room #: 463-P [facility] IN M.R.#: [id number] Admission: 05/13/18 Attend Phys: Nicki Brown Discharge: Date of : 37 Report #: [id number] THIS REPORT FOR: //name// CC: Nicki Torrez DATE OF SERVICE: 05/13/2018 NEUROLOGY CONSULTATION HISTORY OF PRESENT ILLNESS: The patient is an 83-year-old female who yesterday began to experience left-sided weakness. The patient is in a skilled nursing. Apparently, her symptoms began at approximately 6:00 p.m. last night. The patient tried to get up to go to the bathroom, but could not walk because of left lower extremity weakness. At that time, slurred speech and left facial droop was noted. The patient has a history of neuropathy and restless legs syndrome. She is seen by Dr. Anthony and is on ropinirole 3 mg 3 times a day. With regard to the neuropathy, the etiology of this neuropathy has never been found. The patient is on aspirin 81 mg daily. PAST MEDICAL HISTORY: Peripheral neuropathy, arthritis, hypertension, carpal tunnel, restless legs syndrome, hypothyroidism. PAST SURGICAL HISTORY: Cervical spine surgery, lumbar spine surgery, right knee replacement, sections. MEDICATIONS: Ropinirole 3 mg t.i.d., ferrous sulfate 325 mg daily, aspirin 81 mg daily, furosemide 20 mg daily, levothyroxine 50 mcg daily, Osphena 60 mg daily, Flomax 0.4 mg daily, multivitamin daily, nitrofurantoin 100 mg daily. ALLERGIES: OXYCODONE. VITAL SIGNS: Temperature is 36.3, pulse rate 71, respiratory rate 17, blood pressure 149/93, bedside pulse oximetry 94%. LABORATORY DATA: White blood cell count 5.8, hemoglobin 12.5, hematocrit 37.9, MCV 82.4, platelet count 152,000. INR 1. Urinalysis 2+ blood, positive nitrite, 3+ leukocyte esterase. Chemistry: Sodium 139, potassium 4.7, chloride 104, carbon dioxide 28, BUN 31, creatinine 1.6, GFR 39. Ionized calcium 4.5. Triglycerides 77, cholesterol 196, LDL cholesterol 120, HDL cholesterol 61. Vitamin B12 of 674. TSH 2.867. IMAGING STUDIES: Carotid Doppler demonstrates no significant stenosis. MRI of the head demonstrates an acute right deep white matter and basal ganglia infarct. The echocardiogram [place] [address] CONSULTATION Name: CHELSY TALLEY Room #: 463-P [facility] IN M.R.#: [id number] Admission: 05/13/18 Attend Phys: Nicki Brown Discharge: Date of : 37 Report #: [id number] PHYSICAL EXAMINATION: NEUROLOGIC: Cranial nerves 2-12 are grossly intact with the exception of a left facial droop. Motor exam demonstrates a mild to moderate left hemiparesis. Reflexes are symmetrical throughout. Plantar responses are mute bilaterally. Coordination demonstrates no evidence of dysmetria. Gait was not tested. IMPRESSION: This patient has had an acute right basal ganglia infarct. She is now on full strength aspirin. The diagnostic studies have returned with the exception of the echocardiogram for which we are now awaiting the results. I explained to her that she will need physical and occupational therapy and will eventually, may be a very good candidate for rehabilitation. She became tearful. The patient also has restless legs syndrome. I have ordered ropinirole 3 mg now, then 3 mg t.i.d. She is very uncomfortable, lying in bed. I thank you for your kind referral of the patient and we will continue to follow her with you. <ELECTRONICALLY SIGNED> By: Denice Vickers DO 05/14/18 1217 1532 2140 Denice Vickers DO /nt
--- NOTE | ~2018-05-13 | EKG ---
[address] [address] ELECTROCARDIOGRAM REPORT Name: CHELSY TALLEY Room #: 463- ADM IN M.R.#: [id number] Admission: 05/13/18 Attend Phys: Nicki Brown Discharge: Date of : 37 Report #: [id number] THIS REPORT FOR: //name// [facility] Test Date: 2018-05-15 Test Time: 09:46:47 Pat Name: CHELSY TALLEY Department: Room: 463 Gender: F Printed Products Assembler: riya : 1935 Requested By: Dustin Kendrick Order Number: [id number] MD: Demetris Lan Measurements Intervals [place] Rate: 106 P: 34 [place]: 146 QRS: -82 QRSD: 96 T: 14 QT: 362 QTc: 481 Interpretive Statements Sinus tachycardia Atrial premature complex Left anterior fascicular block Abnormal R-wave progression, late transition Compared to ECG 05/13/2018 09:32:08 Atrial premature complex(es) now present Sinus rhythm no longer present Electronically Signed On 05-15-2018 20:44:49 WINE MASTER by Demetris Lan [email or web address] <ELECTRONICALLY SIGNED> By: Demetris Lan MD 05/15/18 2044 5 5 Demetris Lan MD /EPI
--- NOTE | ~2018-05-13 | EKG ---
[address] [address] ELECTROCARDIOGRAM REPORT Name: CHELSY TALLEY Room #: 463- ADM IN M.R.#: [id number] Admission: 05/13/18 Attend Phys: Nicki Brown Discharge: Date of : 37 Report #: [id number] THIS REPORT FOR: //name// [facility] Test Date: 2018-05-13 Test Time: 17:47:45 Pat Name: CHELSY TALLEY Department: Room: 463 Gender: F Tapper Hand: Humphrey HERNÁNDEZ : 1935 Requested By: Nicki Brown Order Number: [id number] MD: Demetris Lan Measurements Intervals [place] Rate: 49 P: 46 [place]: 151 QRS: -57 QRSD: 113 T: 0 QT: 502 QTc: 454 Interpretive Statements Sinus bradycardia Left anterior fascicular block Compared to ECG 05/13/2018 09:32:08 Sinus rhythm no longer present Electronically Signed On 05-15-2018 20:26:02 MACHINE MAINTENANCE REPAIRER by Demetris Lan [email or web address] <ELECTRONICALLY SIGNED> By: Demetris Lan MD 05/15/182025 174 174 Demetris Lan MD /EPI
--- NOTE | ~2018-05-13 | HC ---
[facility] [place] [address] CONSULTATION Name: CHELSY TALLEY Room #: 463-P ADM IN M.R.#: [id number] Admission: 05/13/18 Attend Phys: Nicki Brown Discharge: Date of : 37 Report #: [id number] THIS REPORT FOR: //name// CC: Nicki Torrez HISTORY OF PRESENT ILLNESS: The patient is an 83-year-old female who I am asked to see after apparently suffering a CVA last night. She lives in [facility] and had some left-sided and left upper extremity weakness and facial droop with some slight slurring of her words. This was approximately 24 hours ago. She presented here. She has had some mild sinus bradycardia, asymptomatic, but there has been no evidence of any other dysrhythmias. No evidence of atrial fibrillation, although that is certainly always in play in this setting. She had been worked up for the CVAs and embolic events potentially. She does not have a specific cardiac history, only history of hypertension. She does not take any lipid-lowering medications. She denies chest pain or anginal complaints. No prior cardiac workup. 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 MEDICATIONS: She is on Requip, iron, baby aspirin, Lasix 20, levothyroxine, Osphena, tamsulosin and multivitamins. In the past, she has been on benazepril, Protonix, gabapentin, meclizine and cephalexin. LABORATORY DATA: Laboratory work shows positive for possible urinary tract infection and H and H of 12 and 37. INR was normal. Potassium 4.6, creatinine 1.3. Troponin is negative. PAST MEDICAL HISTORY: Positive for the hypertension, bronchitis, DJD, history of cellulitis of the lower extremities, recurrent yeast infections and prior tobacco use, although quit 30 years ago. SOCIAL HISTORY: She is . Her has had a stroke. They live in [facility]. She has 2 sons. No alcohol. She quit tobacco in 1974 or 1979, she states. FAMILY HISTORY: Strongly positive for coronary artery disease including a mother and a sibling, in their 60s, she believes. ALLERGIES: OXYCODONE. PHYSICAL EXAMINATION: VITAL SIGNS: Blood pressure was 140/70, pulse has been anywhere from 50-70, in sinus, with some sinus arrhythmia. REVIEW OF SYSTEMS: Essentially negative, except for just arthritis pain and some mobility issues. PHYSICAL EXAMINATION: [facility] [address] [address] CONSULTATION Name: CHESLY TALLEY Room #: 463-P [facility] IN ..#: [id number] Admission: 05/13/18 Attend Phys: Nicki Brown Discharge: Date of : 37 Report #: [id number] GENERAL: She is alert. She is just excitable tonight, somewhat tearful. VITAL SIGNS: Blood pressure is 140-150 systolic over 70s, Pulse is 50s to 60s tonight. HEENT: Eyes reveal no xanthelasmas. There is no arcus. Pharynx is clear. NECK: Shows preserved upstrokes, without JVD or bruits. LUNGS: Clear. CARDIAC EXAMINATION: Regular rate and rhythm, S1, S2 distant. No significant murmur or gallop. ABDOMEN: Soft. No HSM or abdominal bruit. EXTREMITIES: Reveal trace of edema. There are some venous stasis changes. I do not see skin breakdown. NEUROLOGIC: There is definite mild left facial droop. There is significant weakness of the left upper extremity. 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 She can lift her arm with some assistance. Her left-sided toes and feet seem to be relatively spared. DIAGNOSTIC DATA: The CAT scan shows just chronic changes. No acute process. Carotid arteries do not show any significant issue. ASSESSMENT: 1. 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 2. Urinary tract infection, looks to be acute. 3. Hypertension. 4. Degenerative joint disease. RECOMMENDATIONS AND PLAN: Plavix has been added. Would add a statin to this regimen. Check lipids. Echo Doppler looks to be normal, with regards to no LV dysfunction and valvular status stable. We will continue on telemetry. Always a concern for paroxysmal AFib, although we have no evidence of this. We will check lipids and initiate statin therapy. Continue with aspirin. We will follow with you. I do not perceive there is any active cardiac issue at this time. Thank you for asking us to assist in the care of this patient. By: [id number] Dale Hodges MD, FACC /nt
--- NOTE | ~2018-05-13 | EKG ---
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 : 1935 Requested By: Rachael Vargas Order Number: [id number] MD: Demetris Lan Measurements Intervals Victor Rate: 76 P: 54 NH: 192 QRS: -56 QRSD: 110 T: 28 QT: 413 QTc: 465 Interpretive Statements Sinus rhythm Left anterior fascicular block Abnormal R-wave progression, late transition Compared to ECG 08/23/2016 10:38:26 Left anterior fascicular block now present Left ventricular hypertrophy no longer present Electronically Signed On 05-13-2018 13:22:30 DIRECTOR PHYSICAL THERAPY by Demetris Lan [email or web address] <ELECTRONICALLY SIGNED> By: Demetris Lan MD 05/13/18 1322 1 1 Demetris Lan MD /EPI
--- NOTE | ~2018-05-13 | 2DMMODE ---
[facility] [place] [place] [address] 2 D/M-MODE ECHOCARDIOGRAM Name: CHELSY TALLEY Room #: 463-P ADM IN M.R.#: [id number] Admission: 05/13/18 Attend Phys: Nicki Crow Discharge: Date of : 37 Date of Service: 05/13/18 1739 Report #: [id number] THIS REPORT FOR: //name// APPROVED REPORT Study performed: 05/13/2018 14:37:02 EXAM: Comprehensive 2D, Doppler, and color-flow Echocardiogram Patient Location: ER Room #: 7 Status: routine BSA: 1.89 HR: 76 bpm BP: 139/67 mmHg Rhythm: NSR Other Information Study Quality: Adequate Indications CVA/TIA Hypertension/HDD Echo Enhancing Agent Indication: Rule out Shunt Agent(s) / Amount(s) Used: Agitated Saline 7 cc 2D Dimensions IVSd: 9.83 (7-11mm) LVOT Diam: 21.28 (18-24mm) LVDd: 46.92 mm PWd: 10.02 (7-11mm) Ascending Ao: 34.27 (22-36mm) LVDs: 30.85 (25-40mm) Aortic Root: 37.04 mm IVC: 24.00 mm Aortic Valve AoV Peak Vincent.: 1.89 m/s AO Peak Gr.: 14.33 mmHg LVOT Max P.62 mmHg LVOT Max V: 1.19 m/s OLGA Vmax: 2.23 cm2 Mitral Valve E/A Ratio: 0.6 MV Decel. Time: 355.71 ms MV E Max Vincent.: 0.78 m/s MV A Vincent.: 1.27 m/s [facility] [address] [address] 2 D/M-MODE ECHOCARDIOGRAM Name: CHELSY TALLEY Room #: 463-[facility] IN ..#: [id number] Admission: 05/13/18 Attend Phys: Nicki Crow Discharge: Date of : 37 Date of Service: 05/13/18 1739 Report #: [id number] MV PHT: 103.16 ms IVRT: 115.34 ms Pulmonary Valve PV Peak Vincent.: 0.86 m/s PV Peak Gr.: 2.95 mmHg Tricuspid Valve TR Peak Vincent.: 3.02 m/s TR Peak Gr.: 36.56 mmHg PA Pressure: 46.00 mmHg Left Ventricle The left ventricle is normal size. There is normal LV segmental wall motion. There is normal left ventricular wall thickness. The left ventricular systolic function is normal. The left ventricular ejection fraction is within the normal range. LVEF is 60-65%. Mild diastolic dysfunction is present (impaired relaxation pattern). Right Ventricle The right ventricle is normal size. The right ventricular systolic function is normal. Atria Left atrium is dilated. Interatrial septum is intact without evidence of ASD or PFO. Right atrium is at the upper limits of normal. Aortic Valve Aortic valve is mildly calcified. No aortic regurgitation is present. There is no aortic valvular stenosis. Mitral Valve The mitral valve is normal in structure. Mild mitral regurgitation. No evidence of mitral valve stenosis. Tricuspid Valve The tricuspid valve is normal in structure. There is trace to mild tricuspid regurgitation. Estimated PAP 46 mmHg. There is moderate pulmonary hypertension. Pulmonic Valve The pulmonary valve is normal in structure. Trace pulmonic regurgitation. Great Vessels The aortic root is normal in size. IVC is dilated and collapses [facility] [address] [place] [address] 2 D/M-MODE ECHOCARDIOGRAM Name: CHELSY TALLEY Room #: 463-P [facility] IN .R.#: [id number] Admission: 05/13/18 Attend Phys: Nicki Crow Discharge: Date of : 37 Date of Service: 05/13/18 1739 Report #: [id number] <50% with inspiration. Pericardium Trace pericardial effusion. <Conclusion> The left ventricular systolic function is normal. There is normal LV segmental wall motion. LVEF 60-65%. Mild diastolic dysfunction is present (impaired relaxation pattern). Left atrium is dilated. No shunting by contrast bubble injection Aortic valve is mildly calcified. No aortic regurgitation or stenosis The mitral valve is normal in structure. Mild mitral regurgitation. There is trace to mild tricuspid regurgitation. Estimated pulmonary artery pressure of 46 mmHg. Trace pericardial effusion. <ELECTRONICALLY SIGNED> By: Crow Vega MD, FACC 05/13/18 [phone] Crow Vega MD, FACC /INF
[~2018-05-13 08:51] MED LIST changes: +CEPHALEXIN 500500 M3 PO
[2018-05-13 09:09] LABS: ABSOLUTE NEUTROPHILS 3.1 thou/uL (1.4-8.2); BASOPHILS 1.2 % (0.0-2.0); EOSINOPHILS 3.9 % (0.0-3.0); HEMATOCRIT 37.9 % (37.0-47.0); HEMOGLOBIN 12.5 gm/dL (12.0-15.0); LYMPHOCYTES 35.5 % (24.0-44.0); MCH 27.1 pg (26.0-34.0); MCHC 32.9 g/dL (28.0-37.0); MCV 82.4 fL (80.0-100.0); MONOCYTES 6.5 % (1.0-8.0); PLATELET COUNT 152 thou/uL (150-400); POLYS 52.9 % (36.0-66.0); RDW 14.9 % (10.5-14.5); WBC 5.8 thou/uL (4.0-11.0)
[2018-05-13 09:15] LABS: ANION GAP 5 mmol/L (7-16); BUN 24 mg/dL (7-18); CALCIUM 9.2 mg/dL (8.5-10.1); CHLORIDE 105 mmol/L (98-107); CO2 27 mmol/L (21-32); CREATININE 1.3 mg/dL (0.6-1.0); GLUCOSE 85 mg/dL (74-106); SODIUM 137 mmol/L (136-145)
[2018-05-13 09:16] LABS: POTASSIUM 4.6 mmol/L (3.5-5.1)
[2018-05-13 09:21] LABS: APTT 23.6 Seconds (24.5-32.8)
[2018-05-13 09:24] LABS: TROPONIN-I <0.06 ng/mL (<0.06)
[2018-05-13 09:30] VITALS: BP 143/75
[2018-05-13 10:13] LABS: URINE BILIRUBIN NEGATIVE (Negative); URINE BLOOD 2+ (Negative); URINE CLARITY CLOUDY; URINE COLOR YELLOW; URINE GLUCOSE-RANDOM* NEGATIVE (Negative); URINE KETONES NEGATIVE (Negative); URINE LEUKOCYTES 3+ (Negative); URINE NITRITE POSITIVE (Negative); URINE PROTEIN (DIPSTICK) NEGATIVE (Negative); URINE SPECIFIC GRAVITY <= 1.005 (1.005-1.035); URINE UROBILINOGEN 0.2 E.U./dl (0.2-1.0)
[2018-05-13 10:35] LABS: SQUAMOUS 4-10 Moderate /LPF (0-3)
[2018-05-13] MEDS ORDERED: NITROFURANTOIN100 MG PO (10:36)
[2018-05-13 10:37] LABS: BACTERIA >30 Many /HPF (None Seen); CASTS None Seen /LPF (None Seen); CRYSTALS None Seen /LPF (None Seen); URINE RBC 0-2 Rare /HPF (0-2); URINE WBC 6-15 Few /HPF (0-5)
[2018-05-13 10:38] LABS: RENAL EPITHELIAL CELLS 0-3 Few /LPF (None Seen); TRANSITIONAL EPITHEL CELL 0-3 Few /LPF (None Seen)
[2018-05-13 12:19] VITALS: BP 141/73
[2018-05-13 12:38] LABS: CHOLESTEROL 196 mg/dL (<200); HDL CHOLESTEROL 61 mg/dL (>40); LDL CHOLESTEROL 120 mg/dL (<100); TC:HDL 3.2 Ratio (Not establshd); TRIGLYCERIDE 77 mg/dL (<150); VLDL 15 mg/dL (<40)
[2018-05-13 12:59] VITALS: BP 134/72
[2018-05-13 13:05] LABS: TSH 2.867 uIU/mL (0.358-3.740)
[2018-05-13 13:28] LABS: POC CA IONIZED 4.5 mg/dL (4.5-5.3); POC CREATININE 1.6 mg/dL (0.6-1.3); POC HEMOGLOBIN 11.6 g/dL (12.0-15.0); POC POTASSIUM 4.7 mmol/L (3.5-5.1)
[2018-05-13 15:15] VITALS: BP 149/93
[2018-05-13 19:43] VITALS: BP 113/76
[2018-05-14 06:00] LABS: CHOLESTEROL 182 mg/dL (<200); HDL CHOLESTEROL 57 mg/dL (>40); LDL CHOLESTEROL 110 mg/dL (<100); SERUM ASSESSMENT Clear; TC:HDL 3.2 Ratio (Not establshd); TRIGLYCERIDE 79 mg/dL (<150); VLDL 16 mg/dL (<40)
[2018-05-14 09:52] VITALS: BP 120/76
[2018-05-14 16:00] VITALS: BP 142/76
[2018-05-14 19:53] VITALS: BP 155/72
[2018-05-15] VITALS (9 sets, daily range): BP systolic 91–174; BP diastolic 47–105
[2018-05-15 10:56] LABS: HEMATOCRIT 37.5 % (37.0-47.0); HEMOGLOBIN 12.3 gm/dL (12.0-15.0); MCHC 32.7 g/dL (28.0-37.0); MCV 82.6 fL (80.0-100.0); RBC 4.54 mil/uL (4.20-5.00); RDW 14.8 % (10.5-14.5); WBC 5.5 thou/uL (4.0-11.0)
[2018-05-15 11:04] LABS: CALCIUM 8.9 mg/dL (8.5-10.1); CREATININE 1.2 mg/dL (0.6-1.0); POTASSIUM 3.6 mmol/L (3.5-5.1)
[2018-05-16 02:24] VITALS: BP 126/93
[2018-05-16 08:46] VITALS: BP 137/82
[2018-05-16] MEDS ORDERED: OXYBUTYNIN 5 MG5 M1 PO (14:07)
[2018-05-16] MEDS ORDERED: BAYER CHEWABLE81 MG PO (14:07)
== END 2018-05-16 15:48 | DRG 65 ==
LOC: ER 08:51 → 4W 12:21 → EROBS 12:21 → 4W 13:44
PROVIDERS: Family Medicine; Hospitalist; Internal Medicine Cardiovascular Disease; Student in an Organized Health Care Education/Training Program
DX: I63.9 Cerebral infarction, unspecified (principal); N39.0 Urinary tract infection, site not specified; G81.94 Hemiplegia, unspecified affecting left nondominant side; I10 Essential (primary) hypertension; G62.9 Polyneuropathy, unspecified; M19.90 Unspecified osteoarthritis, unspecified site; E03.9 Hypothyroidism, unspecified; G25.81 Restless legs syndrome; Z96.651 Presence of right artificial knee joint; R00.1 Bradycardia, unspecified; R45.86 Emotional lability; R33.9 Retention of urine, unspecified; Z87.81 Personal history of (healed) traumatic fracture; Z87.891 Personal history of nicotine dependence; Z98.891 History of uterine scar from previous surgery; Z98.1 Arthrodesis status; Z79.82 Long term (current) use of aspirin; Z79.899 Other long term (current) drug therapy; Z88.5 Allergy status to narcotic agent; Z88.8 Allergy status to other drugs, medicaments and biological substances; Z82.49 Family history of ischemic heart disease and other diseases of the circulatory system
CPT/HCPCS: 10045

== ENCOUNTER 2018-05-16 12:53 | Inpatient (IN) | payer OTHER ==
[~2018-05-16] VITALS: Ht 152.4 cm; Wt 80.7 kg
--- NOTE | ~2018-05-16 | HC ---
[facility] [place] [address] CONSULTATION Name: CHELSY TALLEY Room #: 504-1 ADM IN M.R.#: [id number] Admission: 05/16/18 Attend Phys: Ashwin Gomez MD Discharge: Date of : 37 Report #: [id number] THIS REPORT FOR: //name// CC: Ashwin Torrez DATE OF SERVICE: 05/21/2018 NEUROBEHAVIORAL STATUS EXAMINATION ATTENDING PHYSICIAN: Ashwin Gomez MD [employer]: Shawn Blood, PhD CLINICAL PRESENTATION: The patient is an 83-year-old female, admitted to the rehabilitation unit at [facility] for comprehensive inpatient rehabilitation program to improve functional mobility, activities of daily living and self-care and mental status secondary to a right basal ganglia infarction. She reports having been in her normal state of health when she had difficulty with walking and began to experience diminished ability in activities of daily living. Her diagnosis on admission to the rehabilitation unit is acute right basal ganglia infarction, left-sided weakness, dysphagia, hypertension, asymptomatic bradycardia, urinary tract infection, degenerative joint disease, premorbid peripheral neuropathy, history of cervical spine fracture with allegra fixation in 2014, a history of right total knee replacement, hypothyroidism and carpal tunnel syndrome. A complete description of her medical condition and history along with medications can be found in her medical record. Neuropsychological consultation was requested to provide assistance in the assessment of cognitive and emotional status and to provide recommendations and services. Prior to this most recent medical event, she was assisting her in their apartment. She has two children. One lives within the [place] area. The patient is a high school graduate. 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 The patient indicates concern about her 's well being given her current medical condition and her ability to continue in caring for him to the extent that he requires. TECHNIQUES UTILIZED: Clinical interview, review of medical records, staff consultation and behavioral observation, mini mental status exam 2 standard version and clock drawing. EXAMINATION FINDINGS: The patient was alert and cooperative with the assessment. She accurately described events surrounding her admission. There is no evidence of aphasia. Her thoughts are logical and goal oriented. There [facility] [address] [place] [address] CONSULTATION Name: CHELSY TALLEY Room #: 504-1 ADM IN .R.#: [id number] Admission: 05/16/18 Attend Phys: Ashwin Gomez MD Discharge: Date of : 37 Report #: [id number] is no evidence of thought disorder. She describes symptoms of depression and anxiety. Concern about her ability to return to her same level of independence is reported. She also has noticed decreased appetite and sleep. She does not report difficulty with memory or word finding. Her performance on the MMSE 2 standard version is within normal limits with a raw score of 29/30. She was 3/3 for initial registration, 5/[address] and time, and 3/3 for immediate recall of 3 items after a brief time delay and distraction. She was 4/5 for serial 7's, 2/2 for naming, 1/1 for repetition, 3/3 for auditory comprehension. She could read and follow a single command, write a sentence and accurately copy a simple geometric design. Visual spatial construction was slightly disorganized on the clock drawing; however, performance was within normal limits. 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 RECOMMENDATIONS: Continued psychiatric consultation for assistance in the selection and management of medication for depression and anxiety. I will continue to follow as needed for psychological services. The patient will benefit from verbal praise and compliments about progress in therapies along with her attention directed to strengths and resources that are intact and can be used to assist with compensation. Reassurance and support regarding recovery will also be of benefit to assist in her management of mood. Thank you very much for allowing me to provide the consultation on this patient. <ELECTRONICALLY SIGNED> By: Shawn Blood, PhD 05/22/18 1454 1459 [id number] Shawn Blood, PhD /nt
--- NOTE | ~2018-05-16 | H ---
[facility] [place] [address] HISTORY AND PHYSICAL Name: CHELSY TALLEY Room #: 504-1 ADM IN M.R.#: [id number] Admission: 05/16/18 Attend Phys: Ashwin Gomez MD Discharge: Date of : 37 Report #: [id number] THIS REPORT FOR: //name// CC: Ashwin Torrez DATE OF SERVICE: 05/16/2018 HISTORY OF PRESENT ILLNESS: This is an 83-year-old female who presented to the Emergency Department with slurred speech and left-sided weakness. Head scan revealed acute right basal ganglia infarct. She was evaluated by Cardiology with no evidence of atrial fibrillation; however, they do plan to do a 2-week event monitor as an outpatient. She was also noted to have a UTI and treated with antibiotic. Her stroke cause new significant dysphagia requiring mechanical soft with honey thickened liquid diet. Due to her change in functional mobility and need for acute monitoring, she is now admitted to inpatient rehabilitation for physical, occupational and speech therapies. Today, the patient reports no headache, dizziness or lightheadedness. She denies any change in her vision. She denies cough, shortness of air or chest pain. She denies abdominal pain, nausea. She had a bowel movement 2 days ago, which is normal for her. She does report some urinary hesitancy and dribbling that she is not sure if it is related to the UTI versus stroke. She denies any acute pain. PAST MEDICAL HISTORY: Neuropathy, arthritis, hypertension, history of cervical spine fracture with allegra and screws in the neck in 2015, history of right total knee replacement, lower back spinal fusion, history of restless legs syndrome, hypothyroidism and carpal tunnel syndrome. ALLERGIES: OXYCODONE. CURRENT MEDICATIONS: Macrobid 100 mg daily, multivitamin 1 tablet daily, Lasix 20 mg daily, iron 325 mg daily, aspirin 324, levothyroxine 50 mcg daily, Mucinex 400 mg q. 4 hours p.r.n., Tylenol 650 q.4 hours p.r.n., Requip 3 mg t.i.d., Flomax 0.4 mg at bedtime, oxybutynin 5 mg twice a day, Zofran 4 mg q.6 hours p.r.n., senna 1 tablet daily p.r.n., milk of mag 10 mL daily p.r.n., Colace 100 mg b.i.d. p.r.n., bisacodyl at bedtime suppository p.r.n. HABITS: The patient is a past tobacco smoker, she quit over a year ago. No history of illicit drug use or alcohol abuse. SOCIAL HISTORY: The patient is living in an assisted living facility with her . She does have 2 children. Premorbidly was ambulating with a front wheel walker, was independent with ADLs. The IADLs are provided by the facility. [address] [address] HISTORY AND PHYSICAL Name: TIFFANY TALLEYELIAN CHRISTIE Room #: 504-1 ADM IN M.R.#: [id number] Admission: 05/16/18 Attend Phys: Ashwin Gomez MD Discharge: Date of : 37 Report #: [id number] REVIEW OF SYSTEMS: Remainder of her 14-point review of systems is negative except as listed in HPI. PHYSICAL EXAMINATION: VITAL SIGNS: Blood pressure 134/79, respirations 16, pulse 76, temperature of 98.1, she is 90% oxygen on room air. GENERAL: She is awake, alert, she is oriented x 4. She is in no acute distress. HEENT: Head is normocephalic. Eyes: EOMs are intact with no icterus, no nystagmus. ENT: No sinus tenderness, no pharyngitis. CARDIOVASCULAR: Regular rate and rhythm, S1, S2. CHEST: Lungs are clear to auscultation, no crackles, no wheeze. ABDOMEN: Bowel sounds are positive, soft, nontender. GENITOURINARY: No CVA tenderness. SKIN: Warm, dry and intact. EXTREMITIES: Functional range of motion in bilateral upper extremities and bilateral lower extremities. No clonus, upper or lower extremities. No tremors. Left upper extremity is slightly weaker than the right. Lower extremities, no edema. She does have venous stasis skin changes, able to lift bilateral lower extremities anti-gravity, sit to stand is max assist, very kyphotic posture, was leans to the left with standing, dependent for toilet transfer, bed mobility is mod assist, lower body dressing is max assist. NEUROLOGIC: Facies are equal and symmetrical. She has no slurred speech. She is on a modified diet with thickened liquids. LABORATORY DATA: From 05/17/2018, sodium 139, potassium 4.1, BUN 15, creatinine 1.4, calcium 8.7. WBC is 5.6, hemoglobin 12.4, hematocrit 36.4, platelets 155. Venous Doppler from 05/15/2018 was negative for DVT. On 05/15/2018, CT chest PE protocol is negative. On 05/15/2018, troponin negative. ASSESSMENT: 1. Acute right basal ganglia infarct. 2. Left-sided weakness. 3. Dysphagia. 4. Hypertension. 5. Asymptomatic bradycardia. 6. Urinary tract infection. 7. Degenerative joint disease. 8. Premorbid peripheral neuropathy. 9. History of cervical spine fracture with allegra fixation in 2014. 10. History of right total knee replacement. 11. Hypothyroidism. 12. Carpal tunnel. PLAN: The patient has been admitted to acute inpatient rehabilitation unit for physical, occupational and speech therapies. She will continue on her modified [facility] [place] [address] [place] [address] HISTORY AND PHYSICAL Name: MAYANKCHELSYELIAN CHRISTIE Room #: 504-1 [facility] IN [facility].#: [id number] Admission: 05/16/18 Attend Phys: Ashwin Gomez MD Discharge: Date of : 37 Report #: [id number] diet. We have plans for video swallow this morning with speech therapy, which we will hopefully be able to upgrade her diet. We may need to check bladder scans on her. If her urinary symptoms persist, we will discuss with nursing staff. She will have a team conference today for discharge planning needs. Please see extensive orders. <ELECTRONICALLY SIGNED> By: TRAVIS Almaguer 05/27/18 1508 1026 1059 TRAVIS Almaguer /nt
--- NOTE | ~2018-05-16 | PLAN ---
[facility] [place] [address] REHAB UNIT PLAN OF CARE Name: CHELSY TALLEY Room #: 504-1 ADM IN M.R.#: [id number] Admission: 05/16/18 Attend Phys: Ashwin Gomez MD Discharge: Date of : 37 Report #: [id number] THIS REPORT FOR: //name// CC: Ashwin Torrez DATE OF SERVICE: 05/18/2018 SUBJECTIVE: The patient was seen back today in followup. She is in no distress. Last recorded temperature 97.9, pulse 71, respirations 20, blood pressure 130/88. No focal calf swelling. Transfers are min assist. She is ambulating min assist 50 feet with a front-wheeled walker. In occupational therapy, upper body dressing is mod assist, lower body dressing is dependent. In speech therapy, she has [id number] dysphagia. She is on a mechanical soft nectar thickened liquid diet. ASSESSMENT: 1. Acute right basal ganglia infarct. 2. Left-sided weakness. 3. Dysphagia, on nectar thickened liquids. 4. Emotional lability. 5. Post-stroke, depression. Appreciate psychiatry involvement. 6. Hypertension. 7. Asymptomatic bradycardia. 8. Urinary tract infection. 9. Premorbid peripheral neuropathy. 10. History of cervical spine fracture with allegra fixation in 2014. 11. History of right total knee replacement. 12. Hypothyroidism. PLAN: The overall plan of care is based on the preadmission screen, post-admission physician evaluation and information garnered from therapy assessments. 1. Estimated length of stay is probably at least 2-3 weeks. 2. Medical prognosis is reasonably good. 3. Anticipated interventions includes the interdisciplinary acute inpatient rehabilitation program with PT, OT and speech, rehabilitation nursing assisting regarding medication management, skin care prophylaxis, bowel and bladder issues and nursing education. Case management is involved as well as the interdisciplinary acute rehabilitation team. We will have the health and wellness sales consultant physicians continue to follow. 4. Anticipated functional outcomes would be for the patient to become modified independent with transfers, mobility and ADLs at a walker level to try to return back to the home setting. Also to improve as far as swallowing issues and ADLs. 5. Discharge destination would be back to the home setting where she lives in an assisted living facility with her . [place] [id number] REHAB UNIT PLAN OF CARE Name: CHELSY TALLEY Room #: [address] [place] [address] [place] ..#: [id number] Admission: 05/16/18 Attend Phys: Ashwin Gomez MD Discharge: Date of : 37 Report #: [id number] 6. Expected therapy by discipline includes PT, OT and speech 1 hour per day each five days a week throughout the duration of the acute inpatient rehabilitation stay. <ELECTRONICALLY SIGNED> By: Ashwin Gomez MD 05/26/18 1144 0835 1411 Ashwin Gomez MD /RADHA
--- NOTE | ~2018-05-16 | H ---
[facility] [place] [address] HISTORY AND PHYSICAL Name: CHELSY TALLEY Room #: 504-1 ADM IN M.R.#: [id number] Admission: 05/16/18 Attend Phys: Ashwin Gomez MD Discharge: Date of : 39 Report #: [id number] THIS REPORT FOR: //name// CC: Ashwin Torrez DATE OF SERVICE: 05/16/2018 POST-ADMISSION PHYSICIAN EVALUATION Please see my consult note dictation from yesterday and Yamel Dorado's history and physical dictation from today. 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 She was diagnosed with urinary tract infection while on the acute hospitalist service. Cardiology had indicated plans to place a 2-week event monitor at discharge. PAST HISTORY: See my prior consult and Yamel Dorado's dictation. ALLERGIES: See my prior consult and Yamel Dorado's dictation. HABITS: See my prior consult and Yamel Dorado's dictation. SOCIAL HISTORY: See my prior consult and Yamel Dorado's dictation. MEDICATIONS: Please see the full medication listing. This includes vitamins, herbals, and supplements. REVIEW OF SYSTEMS: No specific complaints of chest pain, shortness of breath, or abdominal discomfort. She had prior cervical spine fracture with allegra and screws in the neck in 2014. She does have forward-flexed head. No focal extremity pain complaints. PHYSICAL EXAMINATION: GENERAL: She is pleasant, alert. VITAL SIGNS: As noted. CHEST: Sounded clear to auscultation. CARDIOVASCULAR: Regular rate and rhythm. ABDOMEN: Bowel sounds positive. Nontender. NEUROLOGIC: Functional range of motion left upper and left lower extremity is mildly weaker than the right. She has decreased coordination compared to the right. DTRs were trace to 1, lower extremities. She has kyphotic posture. Mod assist for bed mobility. Lower body dressing is max assist. ASSESSMENT: [address] [address] HISTORY AND PHYSICAL Name: CHELSY TALLEY Room #: [address] [place] [address] [place] ..#: [id number] Admission: 05/16/18 Attend Phys: Ashwin Gomez MD Discharge: Date of : 39 Report #: [id number] 1. Acute right basal ganglia infarct. 2. Left-sided weakness. 3. Dysphagia. 4. Hypertension. 5. Asymptomatic bradycardia. 6. Urinary tract infection. 7. Degenerative joint disease. 8. Premorbid peripheral neuropathy. 9. History of cervical spine fracture with allegra fixation in 2014. 10. History of right total knee replacement. 11. Hypothyroidism. 12. Carpal tunnel. PLAN: From a post-admission physician evaluation perspective, there are no relevant changes since the preadmission screening. Please see the above review of prior and current medical and functional conditions and comorbidities. Please see the patient's previous and current functional status. As far as her risk of complications, the patient has multiple medical comorbidities as noted above. The initial plan of care involves the interdisciplinary acute inpatient rehabilitation program with the goal of maximizing the patient's functional independence so that she can hopefully return back to her prior living situation. Measurable functional goals would be for the patient to become modified independent with transfers, mobility, ADLs as well as swallowing issues, cognitive and communication issues so that she can return back to the home setting. Prognosis is reasonably good with estimated length of stay probably at least 2-3 weeks pending progress. Potential barriers would include her multiple medical comorbidities and decreased functional status. The patient meets diagnostic criteria for an acute in-hospital inpatient rehabilitation stay. She does meet the medical necessity criteria and does have the tolerance for therapies. She has appropriate discharge goals back to the home setting. <ELECTRONICALLY SIGNED> By: Ashwin Gomez MD 05/26/18 [id number] Ashwin Gomez MD /nt
[~2018-05-16 12:53] MED LIST changes: +NITROFURANTOIN100 MG PO
[2018-05-16] MEDS ORDERED: BAYER CHEWABLE81 MG PO (14:07)
[2018-05-16] MEDS ORDERED: OXYBUTYNIN 5 MG5 M1 PO (14:07)
[2018-05-16 16:00] VITALS: BP 141/75
[2018-05-16 19:05] VITALS: BP 130/81
[2018-05-17 06:46] LABS: HEMATOCRIT 36.4 % (37.0-47.0); HEMOGLOBIN 12.4 gm/dL (12.0-15.0); MCH 27.9 pg (26.0-34.0); MCHC 34.1 g/dL (28.0-37.0); MCV 81.8 fL (80.0-100.0); RBC 4.45 mil/uL (4.20-5.00); WBC 5.6 thou/uL (4.0-11.0)
[2018-05-17 06:56] LABS: CALCIUM 8.7 mg/dL (8.5-10.1); CREATININE 1.4 mg/dL (0.6-1.0); POTASSIUM 4.1 mmol/L (3.5-5.1)
[2018-05-17 08:15] VITALS: BP 134/79
[2018-05-17 19:09] VITALS: BP 130/88
[2018-05-18 07:22] VITALS: BP 116/76
[2018-05-18 19:57] VITALS: BP 116/71
[2018-05-19 07:20] VITALS: BP 117/76
[2018-05-19 20:25] VITALS: BP 124/85
[2018-05-20 06:00] LABS: ABSOLUTE NEUTROPHILS 2.8 thou/uL (1.4-8.2); BASOPHILS 1.2 % (0.0-2.0); EOSINOPHILS 7.4 % (0.0-3.0); HEMATOCRIT 37.5 % (37.0-47.0); HEMOGLOBIN 12.6 gm/dL (12.0-15.0); LYMPHOCYTES 28.2 % (24.0-44.0); MCH 27.8 pg (26.0-34.0); MCHC 33.7 g/dL (28.0-37.0); MCV 82.6 fL (80.0-100.0); MONOCYTES 7.6 % (1.0-8.0); PLATELET COUNT 144 thou/uL (150-400); POLYS 55.6 % (36.0-66.0); RBC 4.54 mil/uL (4.20-5.00); RDW 15.1 % (10.5-14.5)
[2018-05-20 06:21] LABS: CALCIUM 8.6 mg/dL (8.5-10.1); CREATININE 1.4 mg/dL (0.6-1.0); MAGNESIUM 2.2 mg/dL (1.8-2.4); POTASSIUM 4.1 mmol/L (3.5-5.1)
[2018-05-20 09:05] VITALS: BP 106/76
[2018-05-20 19:37] VITALS: BP 149/84
[2018-05-21 07:05] VITALS: BP 147/80
[2018-05-21 20:30] VITALS: BP 130/80
[2018-05-22 07:30] VITALS: BP 138/84
[2018-05-22 19:47] VITALS: BP 138/80
[2018-05-23 06:44] VITALS: BP 105/70
[2018-05-23 19:55] VITALS: BP 127/73
[2018-05-24 08:56] VITALS: BP 142/58
[2018-05-24 19:21] VITALS: BP 143/83
[2018-05-25 09:08] VITALS: BP 95/57
[2018-05-25 19:35] VITALS: BP 124/75
[2018-05-26 07:25] VITALS: BP 117/78
[2018-05-26 20:44] VITALS: BP 123/73
[2018-05-27 04:51] LABS: CALCIUM 8.7 mg/dL (8.5-10.1); CREATININE 1.6 mg/dL (0.6-1.0); MAGNESIUM 1.9 mg/dL (1.8-2.4); POTASSIUM 3.8 mmol/L (3.5-5.1)
[2018-05-27 04:54] LABS: ABSOLUTE NEUTROPHILS 2.8 thou/uL (1.4-8.2); BASOPHILS 1.1 % (0.0-2.0); EOSINOPHILS 6.4 % (0.0-3.0); HEMATOCRIT 37.7 % (37.0-47.0); HEMOGLOBIN 12.5 gm/dL (12.0-15.0); LYMPHOCYTES 29.5 % (24.0-44.0); MCH 27.5 pg (26.0-34.0); MCHC 33.2 g/dL (28.0-37.0); MCV 82.8 fL (80.0-100.0); MONOCYTES 8.3 % (1.0-8.0); PLATELET COUNT 144 thou/uL (150-400); POLYS 54.7 % (36.0-66.0); RBC 4.56 mil/uL (4.20-5.00)
[2018-05-27 07:13] VITALS: BP 124/72
[2018-05-27 20:35] VITALS: BP 95/69
[2018-05-28 07:20] VITALS: BP 120/72
[2018-05-28 20:13] VITALS: BP 128/75
[2018-05-29 07:20] VITALS: BP 90/63
[2018-05-29 19:29] VITALS: BP 114/62
[2018-05-30] MEDS ORDERED: LIPITOR40 MG PO (07:46)
[2018-05-30] MEDS ORDERED: TYLENOL325 MG PO (07:46)
[2018-05-30] MEDS ORDERED: PROTONIX 20 MG20 M1 PO (07:46)
[2018-05-30] MEDS ORDERED: MIRALAX17 GM PO (07:46)
[2018-05-30] MEDS ORDERED: NYAMYC15 GM TOP (07:46)
[2018-05-30] MEDS ORDERED: PEPCID20 MG PO (07:46)
[2018-05-30] MEDS ORDERED: COLACE100 MG PO (07:46)
[2018-05-30 08:30] VITALS: BP 82/54
[2018-05-30 08:33] VITALS: BP 114/62
[2018-05-30 10:19] VITALS: BP 114/62
[2018-05-30] MEDS ORDERED: REMERON15 MG PO (10:47)
== END 2018-05-30 11:14 | disposition home or self-care (01) | DRG 56 ==
PROVIDERS: Nurse Practitioner; Physical Medicine & Rehabilitation
DX: G81.94 Hemiplegia, unspecified affecting left nondominant side (principal); I63.9 Cerebral infarction, unspecified; N39.0 Urinary tract infection, site not specified; N17.9 Acute kidney failure, unspecified; R13.10 Dysphagia, unspecified; R00.1 Bradycardia, unspecified; M19.90 Unspecified osteoarthritis, unspecified site; G62.9 Polyneuropathy, unspecified; E03.9 Hypothyroidism, unspecified; Z96.651 Presence of right artificial knee joint; G56.00 Carpal tunnel syndrome, unspecified upper limb; I12.9 Hypertensive chronic kidney disease with stage 1 through stage 4 chronic kidney disease, or unspecified chronic kidney disease; N18.9 Chronic kidney disease, unspecified; E78.5 Hyperlipidemia, unspecified; G25.81 Restless legs syndrome; F43.23 Adjustment disorder with mixed anxiety and depressed mood; R11.0 Nausea; M62.838 Other muscle spasm; K59.00 Constipation, unspecified; Z98.1 Arthrodesis status; Z88.6 Allergy status to analgesic agent; Z87.81 Personal history of (healed) traumatic fracture; Z87.891 Personal history of nicotine dependence; I69.319 Unspecified symptoms and signs involving cognitive functions following cerebral infarction
CPT/HCPCS: 10112

== ENCOUNTER 2018-06-02 21:38 | Emergency (ER) | payer OTHER ==
[~2018-06-02] VITALS: Ht 152.4 cm; Wt 77.1 kg
[~2018-06-02 21:38] MED LIST changes: +BAYER CHEWABLE81 MG PO; +COLACE100 MG PO; +LIPITOR40 MG PO; +MIRALAX17 GM PO; +NYAMYC15 GM TOP; +OXYBUTYNIN 5 MG5 M1 PO; +PEPCID20 MG PO; +PROTONIX 20 MG20 M1 PO; +REMERON15 MG PO; +TYLENOL325 MG PO
[2018-06-02] MEDS ORDERED: OSPHENA60 MG PO (21:59)
[2018-06-02 23:06] VITALS: BP 98/48
== END 2018-06-02 23:08 | disposition short-term general hospital (02) ==
LOC: ER 21:38
DX: I95.9 Hypotension, unspecified (principal); T50.995A Adverse effect of other drugs, medicaments and biological substances, initial encounter; G62.9 Polyneuropathy, unspecified; M19.90 Unspecified osteoarthritis, unspecified site; E03.9 Hypothyroidism, unspecified; G25.81 Restless legs syndrome; I10 Essential (primary) hypertension; Z87.891 Personal history of nicotine dependence; Z88.8 Allergy status to other drugs, medicaments and biological substances; Z96.651 Presence of right artificial knee joint; Z98.890 Other specified postprocedural states; Z86.73 Personal history of transient ischemic attack (TIA), and cerebral infarction without residual deficits; Y92.89 Other specified places as the place of occurrence of the external cause

== ENCOUNTER 2019-03-04 11:34 | Emergency (ER) | payer OTHER ==
[~2019-03-04] VITALS: Ht 152.4 cm; Wt 77.1 kg
[2019-03-04 15:08] VITALS: BP 116/73
== END 2019-03-04 14:59 | disposition home or self-care (01) ==
LOC: ER 11:34
DX: S93.401A Sprain of unspecified ligament of right ankle, initial encounter (principal); E03.9 Hypothyroidism, unspecified; I10 Essential (primary) hypertension; G62.9 Polyneuropathy, unspecified; M19.90 Unspecified osteoarthritis, unspecified site; M43.26 Fusion of spine, lumbar region; G25.81 Restless legs syndrome; Z96.651 Presence of right artificial knee joint; Z98.890 Other specified postprocedural states; Z86.73 Personal history of transient ischemic attack (TIA), and cerebral infarction without residual deficits; Z88.5 Allergy status to narcotic agent; Z87.891 Personal history of nicotine dependence; W18.39XA Other fall on same level, initial encounter; Y92.89 Other specified places as the place of occurrence of the external cause; Y93.89 Activity, other specified; Y99.8 Other external cause status